=== PATIENT | female | born 1995 | race Caucasian/White ===

== ENCOUNTER → 2020-05-11 | Outpatient (CLI) | payer OTHER, SELFPAY ==
[2020-05-11 18:46] LABS: Chlamydia Trachomatis by PCR Negative (Negative); Neisserai gonorrhoeae by PCR Negative (Negative); Probe Check PASS; Sample Adequacy Control PASS; Specimen Processing Control PASS
== END | disposition home or self-care (01) ==
PROVIDERS: Referring Provider Obstetrics & Gynecology; Visit Provider Obstetrics & Gynecology
DX: Z11.3 Encounter for screening for infections with a predominantly sexual mode of transmission (principal)
CPT/HCPCS: 87491; 87591

== ENCOUNTER → 2020-06-26 13:09 | Outpatient (CLI) | payer OTHER, SELFPAY | PROVIDERS: PCP Family Medicine; Referring Provider Obstetrics & Gynecology; Visit Provider Obstetrics & Gynecology | DX: E28.1 Androgen excess (principal) | CPT/HCPCS: 36415; 84403 ==

== ENCOUNTER → 2020-06-28 11:58 | Outpatient (CLI) | payer OTHER, SELFPAY ==
[2020-06-28 12:50] LABS: Hemoglobin A1c 5.3 % (3.8-5.6)
[2020-06-28 12:55] LABS: Progesterone Level 1.66 ng/mL (See Comment); Vitamin D,25 Hydroxy 32.8 ng/mL
[2020-06-28 12:56] LABS: Estradiol 77.9 pg/mL
== END ==
PROVIDERS: PCP Family Medicine; Visit Provider Obstetrics & Gynecology
DX: N94.3 Premenstrual tension syndrome (principal); E28.2 Polycystic ovarian syndrome; Z13.1 Encounter for screening for diabetes mellitus
CPT/HCPCS: 36415; 82306; 82670; 83036; 84144

== ENCOUNTER → 2020-06-30 09:52 | Outpatient (CLI) | payer OTHER, SELFPAY ==
[2020-06-30 10:43] LABS: Progesterone Level 3.94 ng/mL (See Comment)
[2020-06-30 10:48] LABS: Estradiol 42.7 pg/mL
== END ==
PROVIDERS: PCP Family Medicine; Referring Provider Obstetrics & Gynecology; Visit Provider Obstetrics & Gynecology
DX: N94.3 Premenstrual tension syndrome (principal); E28.2 Polycystic ovarian syndrome
CPT/HCPCS: 36415; 82670; 84144

== ENCOUNTER → 2020-07-02 | Outpatient (CLI) | payer OTHER, SELFPAY ==
[2020-07-02 13:20] LABS: Estradiol 68.8 pg/mL
[2020-07-02 13:39] LABS: Progesterone Level 7.17 ng/mL (See Comment)
== END | disposition home or self-care (01) ==
LOC: LAB 12:10
PROVIDERS: PCP Family Medicine; Referring Provider Obstetrics & Gynecology; Visit Provider Obstetrics & Gynecology
DX: N94.3 Premenstrual tension syndrome (principal); E28.2 Polycystic ovarian syndrome
CPT/HCPCS: 36415; 82670; 84144

== ENCOUNTER → 2020-07-04 14:00 | Outpatient (CLI) | payer OTHER, SELFPAY ==
[2020-07-04 14:48] LABS: Estradiol 83.9 pg/mL
== END ==
PROVIDERS: PCP Family Medicine; Referring Provider Obstetrics & Gynecology; Visit Provider Obstetrics & Gynecology
DX: E28.2 Polycystic ovarian syndrome (principal); N94.3 Premenstrual tension syndrome
CPT/HCPCS: 36415; 82670; 84144

== ENCOUNTER → 2020-11-12 07:46 | Outpatient (CLI) | payer OTHER, SELFPAY ==
--- NOTE | 2020-11-12 07:49 | US_ITS ---
STUDY: ULTRASOUND BREAST - RIGHT REASON FOR EXAM: Female, 25 years old. INTERMITTENT UPPER OUTER RIGHT BREAST PAIN WITH MENSTRUAL CYCLES. PT C/O OF PAIN NOT GOING AWAY AFTER LAST CYCLE. TECHNIQUE: Axial and longitudinal images of the RIGHT breast were performed with a high resolution ultrasound transducer. # OF IMAGES: 85 COMPARISON: None. FINDINGS: RIGHT Breast: There is no abnormality in the soft tissues of the breast to correlate with patient''s symptoms. There is no abnormal soft tissue tissue mass. There is no cyst formation. US/Breast Limited Unilateral IMPRESSION: There is no abnormality in the soft tissues of the breast to correlate with patient''s symptoms. There is no abnormal soft tissue tissue mass. There is no cyst formation. ASSESSMENT CATEGORY: BIRADS Category 2: Benign. A letter regarding these results will be sent to the patient by the facility within 30 days. Electronically Signed: Gilson Anderson, at 15:57 EST Tel , Service support ,
== END ==
PROVIDERS: PCP Family Medicine; Referring Provider Obstetrics & Gynecology; Visit Provider Obstetrics & Gynecology
DX: N64.4 Mastodynia (principal)
CPT/HCPCS: 76642

== ENCOUNTER → 2021-04-10 | Outpatient (CLI) | payer OTHER, SELFPAY | END | disposition home or self-care (01) | PROVIDERS: PCP Family Medicine; Visit Provider Obstetrics & Gynecology | DX: N76.0 Acute vaginitis (principal) ==